=== PATIENT | male | born 1985 | race Caucasian/White ===

== ENCOUNTER 2017-03-31 21:17 | Inpatient (IN) | payer BC ==
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
--- NOTE | ~2017-03-31 | DS ---
Discharge Summary [facility] [address] [place]. [address] NAME: ANH SINCLAIR : 87 STATUS : ADM IN [facility]#: [id number] AGE: 31 ADM/REG DATE : 03/31/17 MR#: [id number] REPORT SERV DATE: 04/04/17 DICTATED BY: LINA TRIANA DATE: 04/04/17 REPORT STATUS : Draft TRANSCRIBED BY: MODL DATE: 04/04/17 ADMISSION DATE: 03/31/2017 DISCHARGE DATE: 04/04/2017 The patient does not have a primary care doctor. DIAGNOSES ON ADMISSION: 1. Right mandibular abscess. 2. Acute pain. 3. Possible sepsis. DIAGNOSES ON DISCHARGE: 1. Right mandibular abscess, status post incision and drainage per Dr. Roberts. 2. Pain controlled. 3. No evidence of sepsis. 4. Mild acute kidney injury present on admission, resolved next day. 5. Leukocytosis, resolved, afebrile. 6. Mild hyperglycemia, resolved. 7. History of bipolar disorder, currently controlled. CONSULTANTS ON THE CASE: Oral dental surgeon Dr. Erick Roberts, Infectious Disease, Dr. Lagunas. HISTORY OF PRESENT ILLNESS: Briefly, this is a 31-year-old male, who was admitted by my colleague, Dr. Mohamud on 03/31/2017 as a transfer from [facility] for submandibular abscess. For the details, see history of present illness dictated by Dr. Mohamud on 03/31/2017. HOSPITAL COURSE: Briefly, the patient was started on IV fluids as well as on intravenous antibiotics and he was seen by Lisa Rodrigez, nurse practitioner, until 04/03/2017. I started to see this patient on 04/03/2017 yesterday, he was doing much better since he was status post incision and drainage on 04/01/2017, done by Dr. Roberts. His leukocytosis was improving. He was still complaining of some pain in his mandible, but it was related to the drain. His drain was removed today. He is doing better. His white count is normal. He is afebrile. White count is 9.6. His kidney function is in the normal range for the last three days. Creatinine today is 0.89. His IV fluids have been discontinued. He had mild hyperglycemia which has resolved. He has bipolar disorder which is controlled. Dr. Roberts saw the patient this morning and he recommended the patient to be discharged today and follow up with him on 04/06/2017 on Thursday. He also recommended Augmentin at a dose of 875 mg twice a day for seven days. Dr. Roberts also prescribed Percocet 10/325, q.6 hours p.r.n. as needed for pain. We will recommend the patient to continue his Depakote at the dose of 200 mg at bedtime, use chlorhexidine for wheezing. The patient reported that he was given hydrocodone before, but he ran out of this medication, so Dr. Roberts prescribed for him pain medications. Augmentin prescription was written by Dr. Roberts at 875 mg p.o. b.i.d. The patient also was seen by [address] [place]. [address] NAME: ANH SINCLAIR : 87 STATUS : ADM IN [facility]#: [id number] AGE: 31 ADM/REG DATE : 03/31/17 MR#: [id number] REPORT SERV DATE: 04/04/17 DICTATED BY: LINA TRIANA DATE: 04/04/17 REPORT STATUS : Draft TRANSCRIBED BY: MODL DATE: 04/04/17 Dr. Brian Lagunas, Infectious Disease, he was also agreeable the patient to go home today. He will go home today after next dose of Unasyn IV and the patient was discharged in stable condition. He will see Dr. Roberts on 04/06/2017 as well as he will see his doctor at [facility] next week. This was also recommended. I spent 45 minutes on discharge. DICTATED BY: Wily Bradley/MANOLO Lina Triana M.D. / [id number] CC: Wily Bradley D.D.S.
--- NOTE | ~2017-03-31 | OP ---
Record Of Operation [facility] [address] [place]. [address] NAME: ANH SINCLAIR : 87 STATUS : ADM IN PAT#: [id number] AGE: 31 ADM/REG DATE : 03/31/17 MR#: [id number] REPORT SERV DATE: 04/01/17 DICTATED BY: LUCI PADILLA DATE: 04/01/17 REPORT STATUS : Draft TRANSCRIBED BY: MODL DATE: 04/01/17 DATE OF PROCEDURE: PREOPERATIVE DIAGNOSIS: Right submandibular space abscess. POSTOPERATIVE DIAGNOSIS: Right submandibular space abscess. OPERATION: Incision and drainage. DESCRIPTION: Following induction of general endotracheal anesthesia, face was prepped and draped in usual manner. Skin incision was outlined in the submandibular triangle approximately 2 cm inferior to the lower border of the right mandible. Skin and subcutaneous tissues were incised sharply. The superficial cervical fascia was divided by blunt and sharp technique. Bleeding areas were coagulated with Bovie. A curved hemostat was then passed through the superficial cervical fascia into the submandibular space, extending to the medial portion of the posterior ramus of the mandible with a copious exudate noted. Culture and sensitivity specimens were obtained. The wound was irrigated with normal saline. A [place] drain was carried to the depth of the wound and was held in position with 4-0 Vicryl suture. Attention was turned to the oral cavity. There was some rebound fullness in the right floor of mouth and a 2 cm incision was made through the mucosa and again, the curved hemostat through the mylohyoid to the floor of the mouth, medial mandible. Again, serosanguineous and purulent exudate escaped. Retained dental roots were removed by an elevator. The pharynx was suctioned clear. Intramaxillary gauze pressure was placed. A dressing was placed on the right submandibular space op-site and the patient was allowed to awaken on inflated endotracheal tube having tolerated the procedure well. BLOOD LOSS: Estimated at less than 50 mL. IV FLUIDS: At 400 mL of lactated Ringer's. WT/MODL Edgar Wolf#: [id number] / [id number] CC: Oneil Guajardo M.D.
[2017-03-31] MEDS ORDERED: CLINDA150 PO (23:10)
[2017-03-31] MEDS ORDERED: NORCO1 TA2 PO (23:11)
[2017-04-01 07:20] LABS: BASOPHILS 0.2 %; BASOPHILS ABSOLUTE 0.04 10/3/uL (0.0-0.16); EOSINOPHILS 0.2 %; EOSINOPHILS ABSOLUTE 0.04 10/3/uL (0.0-0.53); HEMOGLOBIN 13.9 g/dL (13.6-17.8); IMMATURE GRANULOCYTES 0.7 %; IMMATURE GRANULOCYTES ABSOLUTE 0.13 10/3/uL (0.0-0.11); LYMPHOCYTES 12.1 %; LYMPHOCYTES ABSOLUTE 2.31 10/3/uL (0.67-4.30); MEAN CORPUS HGB CONC 34.8 g/dL (32.0-36.0); MEAN CORPUSCULAR HEMOGLOB 33.2 pg (26.0-34.0); MEAN CORPUSCULAR VOLUME 95.5 fL (80-100); MEAN PLATELET VOLUME 9.4 fL (9.2-13.0); MONOCYTES 14.2 %; MONOCYTES ABSOLUTE 2.71 10/3/uL (0.21-1.20); NEUTROPHILS 72.6 %; NEUTROPHILS ABSOLUTE 13.86 10/3/uL (2.02-8.40); PLATELET COUNT 506 10/3/uL (150-400); RBC DISTRIBUTION WIDTH 12.5 % (12.0-16.0); RED CELL COUNT 4.19 10/6/uL (4.7-6.1); WHITE BLOOD CELLS 19.1 10/3/uL (4.5-10.5)
[2017-04-01 07:21] LABS: MANUAL DIFF NO %
[2017-04-01 07:33] LABS: A/G RATIO 0.7 (0.7-1.9); ALBUMIN 3.4 G/DL (3.5-5.0); ALKALINE PHOSPHATASE 75 U/L (45-117); BUN (BLOOD UREA NITROGEN) 10 MG/DL (6-23); CALCIUM, SERUM 9.3 MG/DL (8.5-10.4); CHLORIDE, SERUM 104 MMOL/L (96-112); CO2 (CARBON DIOXIDE) 24 MMOL/L (24-34); GFR AFRICAN AMERICAN 85 ML/MIN (>=60); GFR NON AFRICAN AMERICAN 73 ML/MIN (>=60); GLOBULIN 5.2 G/DL (2.5-4.1); GLUCOSE, SERUM 107 MG/DL (60-99); PHOSPHORUS, SERUM 3.2 MG/DL (2.5-4.5); SGOT(AST) 26 U/L (5-40); SGPT(ALT) 38 U/L (5-65); SODIUM, SERUM 139 MMOL/L (135-148); TOTAL BILIRUBIN 0.6 MG/DL (0-1.2); TOTAL PROTEIN 8.6 G/DL (6.0-8.5)
[2017-04-01 14:18] LABS: PROCALCITONIN 0.18 ng/mL (<0.5)
[2017-04-01] MEDS ORDERED: DEPAKOT500 PO (14:25)
[2017-04-01] MEDS ORDERED: BEN25 PO (14:26)
[2017-04-01 19:51] LABS: ASCORBIC ACID (UR NOT ORDER) NEG (NEG); BILIRUBIN, URINE NEGATIVE (NEG); KETONE, URINE 20 MG/DL (NEG); LEUKOCYTE ESTERASE(NOT OR NEG (NEG); WBC (NOT ORDERED) (RFLEX) < 1 (0-5)
[2017-04-02 07:17] LABS: BASOPHILS 0.1 %; BASOPHILS ABSOLUTE 0.01 10/3/uL (0.0-0.16); BUN (BLOOD UREA NITROGEN) 10 MG/DL (6-23); CHLORIDE, SERUM 107 MMOL/L (96-112); CO2 (CARBON DIOXIDE) 27 MMOL/L (24-34); CREATININE 1.05 MG/DL (0.70-1.30); EOSINOPHILS 0 %; GFR AFRICAN AMERICAN 110 ML/MIN (>=60); GFR NON AFRICAN AMERICAN 95 ML/MIN (>=60); HEMOGLOBIN 12.9 g/dL (13.6-17.8); IMMATURE GRANULOCYTES 0.5 %; IMMATURE GRANULOCYTES ABSOLUTE 0.07 10/3/uL (0.0-0.11); LYMPHOCYTES 11.4 %; LYMPHOCYTES ABSOLUTE 1.53 10/3/uL (0.67-4.30); MEAN CORPUS HGB CONC 34.9 g/dL (32.0-36.0); MEAN CORPUSCULAR HEMOGLOB 33.2 pg (26.0-34.0); MEAN CORPUSCULAR VOLUME 95.1 fL (80-100); MEAN PLATELET VOLUME 9.4 fL (9.2-13.0); MONOCYTES 7.9 %; MONOCYTES ABSOLUTE 1.07 10/3/uL (0.21-1.20); NEUTROPHILS 80.1 %; NEUTROPHILS ABSOLUTE 10.78 10/3/uL (2.02-8.40); PLATELET COUNT 445 10/3/uL (150-400); POTASSIUM, SERUM 4.7 MMOL/L (3.5-5.3); RBC DISTRIBUTION WIDTH 12.5 % (12.0-16.0); RED CELL COUNT 3.89 10/6/uL (4.7-6.1); SODIUM, SERUM 142 MMOL/L (135-148); WHITE BLOOD CELLS 13.5 10/3/uL (4.5-10.5)
[2017-04-02 07:18] LABS: GLUCOSE, SERUM 183 MG/DL (60-99); MANUAL DIFF NO %
[2017-04-03 07:09] LABS: BASOPHILS 0.1 %; BASOPHILS ABSOLUTE 0.01 10/3/uL (0.0-0.16); EOSINOPHILS 0.1 %; EOSINOPHILS ABSOLUTE 0.01 10/3/uL (0.0-0.53); HEMATOCRIT 37.6 % (40.0-51.0); HEMOGLOBIN 12.7 g/dL (13.6-17.8); IMMATURE GRANULOCYTES 0.7 %; IMMATURE GRANULOCYTES ABSOLUTE 0.11 10/3/uL (0.0-0.11); LYMPHOCYTES ABSOLUTE 2.36 10/3/uL (0.67-4.30); MEAN CORPUS HGB CONC 33.8 g/dL (32.0-36.0); MEAN CORPUSCULAR HEMOGLOB 32.7 pg (26.0-34.0); MEAN CORPUSCULAR VOLUME 96.9 fL (80-100); MEAN PLATELET VOLUME 9.5 fL (9.2-13.0); MONOCYTES 8.8 %; MONOCYTES ABSOLUTE 1.38 10/3/uL (0.21-1.20); NEUTROPHILS 75.3 %; NEUTROPHILS ABSOLUTE 11.84 10/3/uL (2.02-8.40); PLATELET COUNT 459 10/3/uL (150-400); RBC DISTRIBUTION WIDTH 12.7 % (12.0-16.0); RED CELL COUNT 3.88 10/6/uL (4.7-6.1); WHITE BLOOD CELLS 15.7 10/3/uL (4.5-10.5)
[2017-04-03 07:10] LABS: MANUAL DIFF NO %
[2017-04-03 07:12] LABS: BUN (BLOOD UREA NITROGEN) 10 MG/DL (6-23); CALCIUM, SERUM 8.8 MG/DL (8.5-10.4); CHLORIDE, SERUM 108 MMOL/L (96-112); CO2 (CARBON DIOXIDE) 26 MMOL/L (24-34); CREATININE 0.97 MG/DL (0.70-1.30); GFR AFRICAN AMERICAN 121 ML/MIN (>=60); GFR NON AFRICAN AMERICAN 104 ML/MIN (>=60); POTASSIUM, SERUM 4.4 MMOL/L (3.5-5.3); SODIUM, SERUM 143 MMOL/L (135-148)
[2017-04-03 07:13] LABS: GLUCOSE, SERUM 113 MG/DL (60-99)
[2017-04-04 08:12] LABS: BASOPHILS 0.3 %; BASOPHILS ABSOLUTE 0.03 10/3/uL (0.0-0.16); EOSINOPHILS 0.9 %; EOSINOPHILS ABSOLUTE 0.09 10/3/uL (0.0-0.53); HEMATOCRIT 37.2 % (40.0-51.0); HEMOGLOBIN 12.6 g/dL (13.6-17.8); IMMATURE GRANULOCYTES 2.1 %; LYMPHOCYTES ABSOLUTE 3.73 10/3/uL (0.67-4.30); MEAN CORPUS HGB CONC 33.9 g/dL (32.0-36.0); MEAN CORPUSCULAR HEMOGLOB 32.3 pg (26.0-34.0); MEAN CORPUSCULAR VOLUME 95.4 fL (80-100); MEAN PLATELET VOLUME 9.2 fL (9.2-13.0); MONOCYTES 6.4 %; MONOCYTES ABSOLUTE 0.61 10/3/uL (0.21-1.20); NEUTROPHILS 51.3 %; NEUTROPHILS ABSOLUTE 4.91 10/3/uL (2.02-8.40); PLATELET COUNT 475 10/3/uL (150-400); RBC DISTRIBUTION WIDTH 12.6 % (12.0-16.0); WHITE BLOOD CELLS 9.6 10/3/uL (4.5-10.5)
[2017-04-04 08:13] LABS: MANUAL DIFF NO %
[2017-04-04 08:28] LABS: BUN (BLOOD UREA NITROGEN) 9 MG/DL (6-23); CALCIUM, SERUM 8.4 MG/DL (8.5-10.4); CHLORIDE, SERUM 104 MMOL/L (96-112); CO2 (CARBON DIOXIDE) 32 MMOL/L (24-34); CREATININE 0.89 MG/DL (0.70-1.30); GFR AFRICAN AMERICAN 133 ML/MIN (>=60); GFR NON AFRICAN AMERICAN 115 ML/MIN (>=60); GLUCOSE, SERUM 107 MG/DL (60-99); POTASSIUM, SERUM 3.7 MMOL/L (3.5-5.3); SODIUM, SERUM 143 MMOL/L (135-148)
[2017-04-04] MEDS ORDERED: PERCOCET 10/3251 TAB PO (10:35)
[2017-04-04] MEDS ORDERED: AUG875 PO (10:36)
== END 2017-04-04 13:18 | disposition home or self-care (01) | DRG 872 ==
LOC: 5SO 21:17
PROVIDERS: Hospitalist; Nurse Practitioner
PROC: 0C9 Mouth and Throat, Drainage (ICD-10-PCS; principal; 2017-03-31)
DX: A41.9 Sepsis, unspecified organism (principal); N17.9 Acute kidney failure, unspecified; M27.2 Inflammatory conditions of jaws; Z87.891 Personal history of nicotine dependence; R73.9 Hyperglycemia, unspecified; F31.9 Bipolar disorder, unspecified; F41.9 Anxiety disorder, unspecified; R13.10 Dysphagia, unspecified
CPT/HCPCS: 80048; 80053; 81001; 83735; 84100; 84145; 85025; 87015; 87040; 87070; 87075; 87102; 87116; 87205; A9270-GY; J0295; J0330; J0690; J2250; J2270; J2405; J2543; J3010